=== PATIENT | male | born 2000 | race Caucasian/White ===

== ENCOUNTER 2024-03-28 21:35 | Emergency (ER) | payer OTHER, SELFPAY ==
[2024-03-28 21:41] VITALS: BP 156/100; PULSE 80; RESP 14; TEMP 36.7; O2SAT 98
--- NOTE | 2024-03-28 21:52 | W.ED.GENAD ---
Discharge Plan Disposition Patient Disposition: Home Condition: Stable Discharge Details Chief Complaint: Laceration Clinical Impression: Laceration of lip Primary Care Provider: Unknown,Unknown ED Provider: Kenn Pat Home Meds and New Rx's Prescriptions: No Action No Known Home Meds Discharge Instructions Additional Instructions: Try to keep the wound clean and becomes dirty you can clean with gentle scrubbing with soap and water Return in 7 to 10 days for evaluation for suture removal. Return sooner if signs of infection develop such as spreading redness across the face or yellow-white discharge from the wound HPI General Mode of arrival: ambulatory. Date/Time Provider Initiated Documentation: 03/28/24 21:36. Limitations to Documentation: no limitations. Information obtained by: patient. History of Present Illness 24 year old M presents to the emergency department with the chief complaint of Lip laceration, described as moderate, Quality is described as aching, and is localized to the face. Patient reports no radiation. Patient started experiencing this hour(s) (1) and it has been constant. No relieving factors improve symptom(s), No exacerbating factors reported . Patient notes no other symptoms.. Patient did receive the following treatments prior to arrival, none Related Data Home Medications ?Medication ?Instructions ?Recorded ?Confirmed Unknown [No Known Home Meds] 03/28/24 03/28/24 Allergies Allergy/AdvReac Type Severity Reaction Status Date / Time No Known Allergies Allergy Verified 03/28/24 21:47 General Stated Complaint: Laceration JARVIS: 3 Review of Systems All systems reviewed & are unremarkable except as noted in HPI and below Eyes Eyes: Denies loss of vision Cardiovascular Cardiovascular: Denies chest pain and Denies dyspnea Respiratory Respiratory: Denies dyspnea Gastrointestinal Gastrointestinal: Denies abdominal pain and Denies vomiting Neurologic Neurologic: Denies loss of vision Exam Const General: no acute distress Orientation: alert [facility] Head: normocephalic Ears: external ears normal General nose exam: external nose normal Mouth: moist mucous membranes and other (1cm mid upper lip lac running vertically) Eyes General: appearance normal, both eyes and all related structures Neck Neck: normal visual inspection Resp Effort & Inspection: normal respiratory effort and able to speak in complete sentences Cardio Rate: regular rate Skin General skin exam: no rashes or lesions noted Neuro General: patient alert and patient oriented x3 Extrem General: normal to inspection Psych Mental Status: mental status grossly normal Course Vital Signs Vital signs: Vital Signs Temperature 36.7 C 03/28/24 21:41 Pulse 80 03/28/24 21:41 Respiratory Rate 14 03/28/24 21:41 Blood Pressure 156/100 H 03/28/24 21:41 Pulse Oximetry 98 03/28/24 21:41 Temperature 36.7 C 03/28/24 21:41 Temperature Source Temporal Artery Scan 03/28/24 21:41 Pulse 80 03/28/24 21:41 Respiratory Rate 14 03/28/24 21:41 Blood Pressure 156/100 H 03/28/24 21:41 Blood Pressure Position Supine 03/28/24 21:41 Pulse Oximetry 98 03/28/24 21:41 Oxygen Delivery Method Room Air 03/28/24 21:41 Oxygen Flow Rate 0 03/28/24 21:41 Pain Level 3 03/28/24 21:41 Procedure Laceration Laceration 1: Date of Procedure: 03/28/24 Time of procedure: 22:14 Provider that performed the procedure: Kenn Pat Patient Consented: Verbally Site: lip Description: linear Depth: simple, single layer Local anesthetic: Lidocaine 1% Amount of anesthesia used (mL): 5 Pre-repair:: wound explored and irrigated extensively Skin layer closed with: nylon Size (cm): 5-0 Number of sutures:: 5 Technique: simple, interrupted Medical Decision Making 24-year-old male who denies any chronic medical problems comes in with a lip injury. He was playing hockey prior to arrival when a puck shot up and hit him in the upper lip. He says he was wearing a mouthguard and his teeth have no pain or discomfort. He did not fall or sustain other injuries. He has a 1 cm mid upper lip laceration that runs vertically with the lower portion going through to the inner surface of the lip. He also has a small abrasion on the lower lip on the inner surface. The upper lip is on the undersurface of the lips and will need suture closure, all of his teeth are intact and do not feel loose. He has no other signs of trauma elsewhere. Do not feel any imaging or lab work indicated. Wound closed with 4 sutures without complication. Patient advised to return sooner if signs of infection and return in 7 to 10 days for evaluation for suture removal Differential Diagnosis Differential Diagnosis: Laceration, abrasion Quality:SDOH Health Related Social Needs: No Data to Display PFSH All Active Problems (Updated 03/28/24 @ 22:17 by Kenn Pat MD) Laceration of lip (Acute) Social History Smoking/Tobacco Use Status: Never Smoking risk assessment performed?: Yes Alcohol Intake: current Alcohol Intake frequency: a few times a week Alcohol type: beer Drug use: Socially Substance use type: marijuana Housing: house Do you feel safe at home: No Do you feel safe in your relationship?: No
[2024-03-28] MEDS: Lidocaine 1% Multi-Dose 50 ML VIAL (22:33)
--- OUTSIDE RECORDS SUMMARY | 2024-03-28 22:40 | XMS_ITS | Referral Summary ---
Author Organization [facility] Address [address] [place] [address] Care Team Providers Care Gas Main And Line Fitter Name Role Phone Unknown, Provider MD Primary Care Provider Unava ilable Allergies No known active allergies Immunizations Name Administration Dates Next Due Historical Hepatitis B Vaccine, Unspecified 10/05,2002,2002 Historical Meningococcal Vac cine, Unknown Serogroups 10/30/2007,10/18/2005 Historical Tetanus Toxoid Va ccine, Unspecified 10/17/2014 MMR Vaccine SQ 10/30/2007,10/18/2005 Zostavax (Zoster Vaccine, Live) SQ 10/30/2007, Social History Tobacco Use Types Packs/Day Years Used Date Smoking Tobacco: Never Assessed Sex and Gender Information Value Date Recorded Sex Assigned at Not on file Legal Sex Male 15:03 EDT Gender Identity Not on file Sexual Orientation Not on file Plan of Treatment Not on file Insurance [facility] Care Teams Gas Main And Line Fitter Relationship Specialty Start Date End Date Unknown, Provider, PCP - General 10/12/21
--- OUTSIDE RECORDS SUMMARY | 2024-03-28 22:40 | XMS_ITS | Encounter Summary ---
Author Organization [facility] Address [address] [place] [address] Care Team Providers Care Nutrition Services Aide Name Role Phone Enedelia Madrid PA-C Primary Care Provider [phone] Encounter Details Date Type Department Care Team (Latest Contact Info) Description 01/03/2021 - 01/03/2021 12:47 EDT Hospital Encounter [facility] - [address] [phone] Discharge Disposition: Home or Self Care Social History Tobacco Use Types Packs/Day Years Used Date Smoking Tobacco: Never Assessed Sex and Gender Information Value Date Recorded Sex Assigned at Not on file Legal Sex Male 15:03 EDT Gender Identity Not on file Sexual Orientation Not on file documented as of this encounter Discharge Disposition Disposition Code Departure Means Destination Comment s Home or Self Jail Visit created in error documented in this encounter Plan of Treatment Not on file documented as of this encounter Visit Diagnoses Not on filedocumented in this encounter Care Teams Nutrition Services Aide Relationship Specialty Start Date End Date Enedelia Madrid PA-C [address] [place] [phone] PCP - General Family Medicine - Primary Care 10/07/20 10/11/21 documented as of this encounter
--- OUTSIDE RECORDS SUMMARY | 2024-03-28 22:40 | XMS_ITS | Clinical Summary ---
Author Organization [facility] Address [address] [place] [address] Care Team Providers Care Director Of Regulatory Affairs Name Role Phone Unknown, Provider MD Primary [...] Orientation Not on file Plan of Treatment Health Maintenance Due Date Last Done Comments Hepatitis C Screen 2002 COVID-19 Vaccine (2023-2 5 season) 2023 Hepatitis B Vaccine Completed 10/18/2005, 2002, 2002 Insurance [facility] Care Teams Director Of Regulatory Affairs Relationship Specialty Start Date End Date Unknown, Provider, PCP - General 10/12/21
== END 2024-03-28 22:34 | disposition home or self-care (01) ==
LOC: ER 22:38
PROVIDERS: Emergency Provider Emergency Medicine
DX: S01.511A Laceration without foreign body of lip, initial encounter (principal); W22.8XXA Striking against or struck by other objects, initial encounter; Y93.22 Activity, ice hockey
CPT/HCPCS: 12011; J2003